=== PATIENT | female | born 1965 | race Hispanic/Latino ===

== ENCOUNTER 2024-08-31 07:45 | Day surgery (SDC) | payer OTHER ==
[2024-08-24 11:29] LABS: BASOPHILS # (AUTO) 0.05 K/uL (0.00-0.20); BASOPHILS % (AUTO) 0.8 % (0.0-5.0); EOSINOPHILS # (AUTO) 0.08 K/uL (0.00-0.70); EOSINOPHILS % (AUTO) 1.3 % (0.0-8.0); HEMATOCRIT 45.1 % (36-48); IMMATURE GRANULOCYTE ABSOLUTE 0.02 K/uL (0-1); LYMPHOCYTES # (AUTO) 2.5 K/uL (1.0-4.8); LYMPHOCYTES % (AUTO) 39.9 % (21.0-51.0); MEAN CORPUSCULAR HEMOGLOBIN 29.9 pg (27.0-33.0); MEAN CORPUSCULAR VOLUME 90.4 fL (79-99); MONOCYTES # (AUTO) 0.4 K/uL (0.1-1.0); NEUTROPHILS # (AUTO) 3.2 K/uL (1.8-7.7); NEUTROPHILS % (AUTO) 50.7 % (40.0-77.0); PLATELET COUNT (AUTO) 239 K/uL (130-400); RED BLOOD CELL COUNT(AUTO) 4.99 MIL/uL (4.00-5.50); RED CELL DISTRIBUTION WIDTH 14.6 % (11.0-15.5); WHITE BLOOD COUNT (AUTO) 6.3 K/uL (4.8-10.8)
[2024-08-24 11:30] VITALS: BP 132/65; PULSE 54; RESP 18; TEMP 97.7
[2024-08-24 11:44] LABS: CREATININE 0.7 mg/dL (0.5-1.0); POTASSIUM 4.5 mmol/L (3.5-5.1)
[2024-08-24 11:45] LABS: INR <= 0.93 (0.85-1.15); PROTHROMBIN TIME 9.9 SEC (9.6-11.6)
[2024-08-24 11:47] LABS: PARTIAL THROMBOPLASTIN TIME 25.4 SEC (26.3-35.5)
--- NOTE | 2024-08-24 12:43 | EKG ---
[facility] Test Date: 2024-08-24 Test Time: 11:18:18 Pat Name: ROXANN HASKINS Department: [facility] Room: Gender: F Photo Finisher: [id number] : 1965 Requested By: GERMAINE MONTES DE OCA Order Number: [id number] Reading MD: Fauzia Ugalde Measurements Intervals [place] Rate: 51 P: 67 AR: 156 QRS: 8 QRSD: 82 T: -3 QT: 422 QTc: 388 Interpretive Statements Sinus bradycardia Nonspecific ST and T wave abnormality No previous ECG available for comparison Electronically Signed On 08-25-2024 09:33:43 CDT by Fauzia Ugalde Please click the below link to view image of tracing.
--- NOTE | 2024-08-29 11:34 | NUR ---
RE: EKG REPORTED EKG RESULTS TO DR ABDI, NO NEW ORDERS RECEIVED.
[2024-08-31] VITALS (16 sets, daily range): BP systolic 117–154; BP diastolic 43–78; PULSE 52–80; RESP 14–16; TEMP 96.9–97.6
[~2024-08-31] VITALS: Ht 157.5 cm; Wt 57.2 kg
[2024-08-31] MEDS: LACTATED RINGERS 1000ML 1,000 ML IV ONE (08:37)
[2024-08-31] MEDS: ceFAZolin SODIUM 2 GM VIAL ONE (08:37)
[2024-08-31] MEDS: INDOCYANINE GREEN 25 MG VIAL IJ ONE (10:05)
[2024-08-31] MEDS ORDERED: rocuRONium bROMide 10MG/1ML 5ML VL ONE (10:06)
[2024-08-31] MEDS ORDERED: LIDOCAINE PF 100MG/5ML (2%) SYRINGE 5ML ONE (10:06)
[2024-08-31] MEDS ORDERED: proPOFol 10 MG/ML 20ML VIAL IV ONE (10:06)
[2024-08-31] MEDS ORDERED: MIDAZOLAM HCL 1 MG/ML 2ML VIAL ONE (10:07)
[2024-08-31] MEDS: BUPIvacaine/PF 0.25% 30ML VIAL IJ ONE (10:21)
[2024-08-31] MEDS ORDERED: FENTanyl CITRate PF 50 MCG/1 ML 2ML VIAL ONE (10:23)
[2024-08-31] MEDS ORDERED: dexaMETHasone SOD PHOSPHATE 4 MG/ML 1ML VIAL ONE (10:50)
[2024-08-31] MEDS ORDERED: ondanSETRON 4MG INJ ONE (10:50)
[2024-08-31] MEDS ORDERED: SUGAMMADEX SODIUM 200 MG/2 ML VIAL IV ONE (11:12)
[2024-08-31] MEDS ORDERED: NEOSTIGMINE METHYLSULFATE 1MG/ML IV ONE (11:18)
[2024-08-31] MEDS ORDERED: GLYCOPYRROLATE 0.2 MG/ML 5 ML VIAL ONE (11:18)
[2024-08-31] MEDS: morPHINE 2 MG SYG ONE (11:42)
--- NOTE | 2024-08-31 11:43 | OP ---
Operative Note: DATE OF PROCEDURE: 08/31/24 SURGEON: GERMAINE MONTES DE OCA MD KOHINOOR OPERATOR: True Montes De Oca MD p.a. C ANESTHESIA: General and local ANESTHESIOLOGIST/DAMPENER: [facility] [place] PREOPERATIVE DIAGNOSIS: Symptomatic cholelithiasis/biliary dyskinesia, dyspepsia and concern for possible peptic ulcer disease POSTOPERATIVE DIAGNOSIS: As above. Gallbladder hydrops. Gastritis. SYNOPSIS: Cholecystectomy with cholangiogram and EGD with cold forceps biopsy performed without complication PROCEDURE: 1. Robotic assisted cholecystectomy with IC green cholangiogram 2. EGD with cold forceps biopsy ESTIMATED BLOOD LOSS: Minimal, less than 20 cc INDICATIONS: As above DESCRIPTION OF PROCEDURE: After standard precautions and preparations were undertaken a Veress needle and optical trocar were used to enter the abdominal cavity. All other instruments were placed under direct vision. The robotic system was docked in the standard fashion. We began with the cholecystectomy portion of the case by retracting the gallbladder fundus cephalad. We dissected around the infundibulum in order to achieve a critical view of safety. A single ductal and single vascular structure were identified entering the infundibulum. There appeared to be an impacted stone from around the infundibulum of the gallbladder. We utilized IC green and firefly visual technology to perform cholangiogram. Though the liver and common hepatic and common bile ducts were eliminated including elimination w ithin the duodenum indicating bile flow into the duodenum the gallbladder itself was not lit up neither was the distal cystic duct. This may be due to the patient's impacted infundibular stone or this may be due to biliary dyskinesia with poor influx of bile. A critical view of safety was achieved in both structures were clipped and divided. The bile duct ductotomy revealed only a thin clear mucus fluid and no bile. A small cut in the gallbladder wall revealed that the gallbladder was full of this same thin clear viscous fluid with no signs of bile in the body of the gallbladder. The specimen was removed via Endo-Catch bag. The clips were checked to be in place and we moved onto the EGD portion of the case. The EGD scope was passed through the esophagus, through the stomach, and into the 2nd portion of the duodenum. Findings were consistent with some antral gastritis with the appearance of erythema and congestion. There were no signs of ulceration. The Z-line was irregular at 37 cm from the incisors. There was no sign of a hiatal hernia. There were no gross findings in the duodenum. Cold forceps biopsies were taken at the duodenal bulb, gastric antrum, gastric body, and distal esophagus. There were no signs of complication of the scope was removed without incident. All instrument counts were verified as correct prior to ending the case including needles and sponges. GERMAINE MONTES DE OCA MD Aug 31, 2024 11:43
[2024-08-31] MEDS: FENTanyl CITRate PF 50 MCG/1 ML 2ML VIAL ONE (11:52)
--- NOTE | 2024-08-31 11:54 | PN ---
GENERAL SURGERY PROGRESS NOTE Date/Time Patient Seen: [ 08/31/2024 at 11:50 a.m.] Problem List: [ ] Interval History: [Postop day 0. Pain tolerable with p.r.n. medication. ] Physical Examination: ABD: [Incisions clean, dry and intact, Dermabond in place Vital Signs (last 8hr) Date Time Temp Pulse Resp B/P (MAP) Pulse Ox O2 Delivery O2 Flow Rate FiO2 08/31/24 11:28 97.3 80 16 120/53 100 Nonrebreathing Mask 10.0 08/31/24 08:15 97.0 52 16 136/70 100 Room Air Laboratory: [ ] Chemistry Labs: Test 08/31/24 08:00 Range/Units Serum Test, Qualitative NEGATIVE NEGATIVE Diagnostics / Radiology: [Copy/Paste Echos/Imaging Report here] Impression and Plan: [ Plan is for discharge home today when pain tolerable, patient ambulatory and she is tolerating p.o. intake. Discussed with the patient and family. They understand and agree.] ADEBAYO MONTES DE OCA Aug 31, 2024 11:54
== END 2024-08-31 13:00 | disposition home or self-care (01) ==
LOC: DAH 07:45
PROVIDERS: ATTEND Surgery
DX: K80.12 Calculus of gallbladder with acute and chronic cholecystitis without obstruction (principal); R10.10 Upper abdominal pain, unspecified; K29.60 Other gastritis without bleeding; B96.81 Helicobacter pylori [H. pylori] as the cause of diseases classified elsewhere; R73.03 Prediabetes; Z98.891 History of uterine scar from previous surgery; Z79.899 Other long term (current) drug therapy
CPT/HCPCS: 80048; 84703 ×2; 85025; 85610; 85730; 86850 ×2; 86900 ×2; 86901 ×2; 36415 ×2; 93005; 47563; 43239; 88304; J1100; A4600; A4663; J7030; A4215 ×2; J7120; J3010 ×2; J2270; J0665; J3490 ×2; J2003; J2250; J2704; J2405; J2710; J0690; A4649; A4930 ×2; A4223; A4222; A4221; A4216